=== PATIENT | female | born 1955 | race Caucasian/White ===

== ENCOUNTER 2016-07-06 05:45 | Inpatient (IN) | payer OTHER ==
[~2016-07-06] VITALS: Ht 149.8 cm; Wt 43.8 kg
[2016-07-06] VITALS (7 sets, daily range): BP systolic 122–147; BP diastolic 67–85
--- NOTE | ~2016-07-06 | EKG ---
[place], [place] ELECTROCARDIOGRAM REPORT NAME: RICHARDSON PIERRE UNIT #: [id number] ROOM: 511 DOCTOR: MYLES GALEAS MD BIRTHDATE: [birth year] DOS: 07/06/2016 TIME: 06:02 a.m. FINDINGS: 1. Sinus rhythm with the rate of about 83. 2. Incomplete right bundle branch block. 3. Prolonged QT corrected interval at 510 milliseconds. 4. Short DE interval. 5. Abnormal electrocardiogram. MYLES GALEAS MD CM:EKGRPT:ELECTROCARDIOGRAM REPORT 46 23 MYLES GALEAS MD
[~2016-07-06 05:45] MED LIST: ALENDRONATE SOD70 M1 PO; ARIMIDEX1 MG PO; LIPITOR20 MG PO; SYNTHROID,LEVO50 MCG PO
[2016-07-06 07:23] LABS: BASO % 0.1 % (0.0-1.0); EOS % 0.1 % (1.0-4.0); HEMATOCRIT 36.8 % (37.0-47.0); HEMOGLOBIN 13.1 g/dl (12.0-16.0); IG # 0.1 10*3/uL (0.0-0.1); LYMPH # 0.6 10*3/uL (1.3-4.4); LYMPH % 7.5 % (27.0-41.0); MEAN CORPUSCULAR HGB 29.9 pg (27.0-31.0); MEAN CORPUSCULAR HGB CONC 35.6 g/dl (33.0-37.0); MEAN PLATELET VOLUME 8.5 fl (9.6-12.3); MONO # 0.7 10*3/uL (0.1-1.0); MONO % 8.2 % (3.0-9.0); NEUT # 6.6 10*3/uL (2.3-7.9); NEUT % 83.2 % (47.0-73.0); PLATELET COUNT AUTOMATED 192 10*3/uL (130-400); RED BLOOD COUNT 4.38 10*6/uL (4.10-5.10); RED CELL DISTRI WIDTH 13.3 % (0-14.5); WHITE BLOOD COUNT 7.9 10*3/uL (4.8-10.8)
[2016-07-06 07:33] LABS: PROTHROMBIN TIME 10.7 SECONDS (9.0-12.4)
[2016-07-06 07:40] LABS: ALBUMIN 3.6 gm/dl (3.1-4.5); ALKALINE PHOSPHATASE 59 U/L (45-117); BILIRUBIN, TOTAL 0.6 mg/dl (0.2-1.0); BUN 11 mg/dl (7-24); C-REACTIVE PROTEIN 0.99 MG/DL (0-0.3); CARBON DIOXIDE 18 mmol/L (21-32); CHLORIDE 90 mmol/L (98-107); EST GLOM FILT AFRICAN AMERICAN > 60 ml/min; GLUCOSE 99 mg/dL (65-99); MAGNESIUM 1.5 mg/dL (1.5-2.1); POTASSIUM 3.6 mmol/L (3.5-5.1); SGOT/AST 160 IU/L (3-35); SODIUM 124 mmol/L (136-145); TOTAL PROTEIN 7.1 gm/dL (6.4-8.2)
[2016-07-06 07:43] LABS: BILIRUBIN NEGATIVE (NEGATIVE); BLOOD 1+ (NEGATIVE); CLARITY CLEAR (CLEAR); COLOR YELLOW (YELLOW); GLUCOSE NEGATIVE (NEGATIVE); KETONE 3+ (NEGATIVE); LEUKO ESTERASE NEGATIVE (NEGATIVE); NITRITE NEGATIVE (NEGATIVE); PROTEIN NEGATIVE (NEGATIVE); SPECIFIC GRAVITY <= 1.005 (1.005-1.030); UROBILINOGEN 0.2 E.U./dl (0.2-1.0)
[2016-07-06 07:43] LABS: TROPONIN I < 0.015 ng/ml (<0.045)
[2016-07-06 07:44] LABS: SGPT/ALT 133 U/L (12-78)
[2016-07-06 07:57] LABS: EPITHELIAL CELLS 0-2; WBC 0-2 wbc/hpf (0-5)
[2016-07-06 08:01] LABS: URINE REFLEX COMMENT YES (NO)
[2016-07-07] VITALS: BP 126/70
[2016-07-07 05:57] LABS: EOS % 0.2 % (1.0-4.0); HEMATOCRIT 33.1 % (37.0-47.0); HEMOGLOBIN 11.5 g/dl (12.0-16.0); LYMPH # 0.9 10*3/uL (1.3-4.4); LYMPH % 21.8 % (27.0-41.0); MEAN CELL VOLUME 85.3 fl (81.0-99.0); MEAN CORPUSCULAR HGB 29.6 pg (27.0-31.0); MEAN CORPUSCULAR HGB CONC 34.7 g/dl (33.0-37.0); MEAN PLATELET VOLUME 8.8 fl (9.6-12.3); MONO # 0.7 10*3/uL (0.1-1.0); MONO % 16.5 % (3.0-9.0); NEUT # 2.5 10*3/uL (2.3-7.9); PLATELET COUNT AUTOMATED 197 10*3/uL (130-400); RED BLOOD COUNT 3.88 10*6/uL (4.10-5.10); RED CELL DISTRI WIDTH 13.8 % (0-14.5); WHITE BLOOD COUNT 4.1 10*3/uL (4.8-10.8)
[2016-07-07 06:05] LABS: ALBUMIN 3.1 gm/dl (3.1-4.5); ALKALINE PHOSPHATASE 48 U/L (45-117); BILIRUBIN, TOTAL 0.3 mg/dl (0.2-1.0); BUN 6 mg/dl (7-24); CARBON DIOXIDE 22 mmol/L (21-32); CHLORIDE 98 mmol/L (98-107); CHOLESTEROL 144 mg/dL (<200); EST GLOM FILT AFRICAN AMERICAN > 60 ml/min; GLUCOSE 75 mg/dL (65-99); HDL CHOLESTEROL 41 mg/dl (40-60); LDL CHOLESTEROL 82 mg/dL (9-159); MAGNESIUM 2.2 mg/dL (1.5-2.1); SGOT/AST 52 IU/L (3-35); SGPT/ALT 83 U/L (12-78); SODIUM 130 mmol/L (136-145); TOTAL PROTEIN 6.3 gm/dL (6.4-8.2); TRIGLYCERIDES 103 mg/dl (<150); VLDL CHOLESTEROL 21 mg/dL (6-40)
[2016-07-07 06:39] LABS: FOLIC ACID 19.96 ng/mL (>5.38); VITAMIN D, 25-HYDROXY 28.7 ng/mL (30-100)
[2016-07-07 08:00] VITALS: BP 112/68
[2016-07-07 12:00] VITALS: BP 140/88
[2016-07-07 16:00] VITALS: BP 127/75
[2016-07-07 20:00] VITALS: BP 132/79
[2016-07-08] VITALS: BP 143/84
[2016-07-08 06:49] LABS: BASO % 0.2 % (0.0-1.0); EOS # 0.1 10*3/uL (0.0-0.4); EOS % 1.1 % (1.0-4.0); HEMATOCRIT 34.2 % (37.0-47.0); HEMOGLOBIN 11.9 g/dl (12.0-16.0); LYMPH # 1.1 10*3/uL (1.3-4.4); LYMPH % 24.9 % (27.0-41.0); MEAN CELL VOLUME 84.4 fl (81.0-99.0); MEAN CORPUSCULAR HGB 29.4 pg (27.0-31.0); MEAN CORPUSCULAR HGB CONC 34.8 g/dl (33.0-37.0); MEAN PLATELET VOLUME 9.1 fl (9.6-12.3); MONO # 0.6 10*3/uL (0.1-1.0); NEUT # 2.7 10*3/uL (2.3-7.9); NEUT % 59.4 % (47.0-73.0); PLATELET COUNT AUTOMATED 201 10*3/uL (130-400); RED BLOOD COUNT 4.05 10*6/uL (4.10-5.10); RED CELL DISTRI WIDTH 13.8 % (0-14.5); WHITE BLOOD COUNT 4.5 10*3/uL (4.8-10.8)
[2016-07-08 07:24] LABS: ALBUMIN 3.4 gm/dl (3.1-4.5); ALKALINE PHOSPHATASE 48 U/L (45-117); BILIRUBIN, TOTAL 0.4 mg/dl (0.2-1.0); BUN 6 mg/dl (7-24); CARBON DIOXIDE 24 mmol/L (21-32); CHLORIDE 93 mmol/L (98-107); EST GLOM FILT AFRICAN AMERICAN > 60 ml/min; GLUCOSE 81 mg/dL (65-99); POTASSIUM 3.6 mmol/L (3.5-5.1); SGOT/AST 32 IU/L (3-35); SGPT/ALT 60 U/L (12-78); SODIUM 128 mmol/L (136-145); TOTAL PROTEIN 6.9 gm/dL (6.4-8.2)
[2016-07-08 08:00] VITALS: BP 136/76; BP 142/86
[2016-07-08] MEDS ORDERED: D-1000 185 MG-11 TAB PO (10:59)
[2016-07-08] MEDS ORDERED: IBUPROFEN400 MG PO (10:59)
== END 2016-07-08 12:50 | disposition home or self-care (01) | DRG 641 ==
LOC: ED → 5E 08:38 → EDHOLD 08:38 → 5E 08:48
PROVIDERS: Emergency Medicine Emergency Medical Services; Internal Medicine Hospice and Palliative Medicine
DX: E86.0 Dehydration (principal); S09.90XA Unspecified injury of head, initial encounter; E44.0 Moderate protein-calorie malnutrition; E83.51 Hypocalcemia; Z68.1 Body mass index [BMI] 19.9 or less, adult; E87.1 Hypo-osmolality and hyponatremia; D64.9 Anemia, unspecified; E55.9 Vitamin D deficiency, unspecified; R74.0 Nonspecific elevation of levels of transaminase and lactic acid dehydrogenase [LDH]; R79.82 Elevated C-reactive protein (CRP); E03.9 Hypothyroidism, unspecified; E87.6 Hypokalemia; Z90.5 Acquired absence of kidney; Z87.891 Personal history of nicotine dependence; Z82.3 Family history of stroke; Z79.899 Other long term (current) drug therapy; W10.9XXA Fall (on) (from) unspecified stairs and steps, initial encounter; Y93.01 Activity, walking, marching and hiking; Y92.098 Other place in other non-institutional residence as the place of occurrence of the external cause; Y99.8 Other external cause status; E83.41 Hypermagnesemia; Z85.3 Personal history of malignant neoplasm of breast